=== PATIENT | female | born 1955 | race African-American/Black ===

== ENCOUNTER 2018-10-19 16:04 | Inpatient (IN) | payer BC ==
[~2018-10-19] VITALS: Ht 162.6 cm; Wt 77.6 kg
[2018-10-19] MEDS ORDERED: CEFTRIAXONE SOD 1 GM/NS 50 ML 50 ML IV STA (16:29)
[2018-10-19] MEDS ORDERED: IBUPROFEN 400 MG TAB PO STA (16:29)
[2018-10-19] MEDS ORDERED: SODIUM CHLORIDE 0.9% 1000ML 1,000 ML IV STA (16:29)
[2018-10-19] MEDS ORDERED: IBUPROFEN 600 MG TAB PO NR (16:45)
[2018-10-19] MEDS ORDERED: DIATRIZOATE MEGL/DIATRIZOA SOD 30 ML BTL PO ONE (17:21)
[2018-10-19 18:19] LABS: BASOPHILS % 0.3 % (0.0-1.0); EOSINOPHILS % 0.3 % (0.0-6.0); HEMATOCRIT 33.8 % (34.2-44.1); HEMOGLOBIN 11.3 g/dL (12.0-16.0); LYMPHOCYTES # (AUTO) 0.6 (1.0-3.2); LYMPHOCYTES % 5.3 % (18.0-39.1); MEAN CORPUSCULAR HEMOGLOBIN 28.4 pg (28-32); MEAN CORPUSCULAR HGB CONC 33.4 g/dL (31-35); MEAN CORPUSCULAR VOLUME 84.9 fL (81-99); MONOCYTES # (AUTO) 0.5 (0.2-0.8); MONOCYTES % 4.3 % (4.4-11.3); NEUTROPHILS # (AUTO) 10.2 (2.1-6.9); NEUTROPHILS % 88.3 % (38.7-80.0); PLATELET COUNT 244 x10e3/uL (140-360); RED BLOOD COUNT 3.98 x10e6/uL (3.6-5.1); RED CELL DISTRIBUTION WIDTH 15.8 % (11.7-14.4)
[2018-10-19 18:22] LABS: INR 1.23; PROTHROMBIN TIME 16.1 seconds (11.9-14.5)
[2018-10-19 18:23] LABS: PARTIAL THROMBOPLASTIN TIME 27.1 seconds (23.8-35.5)
[2018-10-19 18:30] LABS: ALBUMIN 2.2 g/dL (3.5-5.0); ALBUMIN/GLOBULIN RATIO 0.4 (0.8-2.0); ANION GAP 11.8 mmol/L (8-16); CALCIUM 8.7 mg/dL (8.4-10.2); CREATININE, SERUM 1.14 mg/dL (0.57-1.11); POTASSIUM 3.8 mmol/L (3.5-5.1)
[2018-10-19 18:42] LABS: MAGNESIUM 2.1 MG/DL (1.3-2.1)
--- NOTE | 2018-10-19 19:01 | Diagnostic Imaging Report ---
EXAMINATION: CHEST SINGLE (PORTABLE) INDICATION: ^ERMD ORDER ^[id number] ^1800 ^Y COMPARISON: None FINDINGS: AP view TUBES and LINES: None. LUNGS: Lungs are well inflated. Bilateral lower lobe consolidation, right greater than left. Bilateral central pulmonary vascular congestion. PLEURA: No pleural effusion or pneumothorax. HEART AND MEDIASTINUM: Mild enlargement of the cardiac silhouette. BONES AND SOFT TISSUES: No acute osseous lesion. Soft tissues are unremarkable. UPPER ABDOMEN: No free air under the diaphragm. IMPRESSION: Bilateral lower lobe consolidation suggestive of aspiration or pneumonia. Bilateral central pulmonary vascular congestion. Signed by: Dr. Michell Duckworth M.D. on 10/19/2018 6:58 PM
[2018-10-19] MEDS ORDERED: SODIUM CHLORIDE 0.9% 1000ML 1,000 ML IV SCH (19:15)
[2018-10-19 19:22] LABS: LYMPHOCYTES % (MANUAL) 4 % (19-48); MONOCYTES % (MANUAL) 4 % (3.4-9.0); NEUTROPHILS % (MANUAL) 92 % (40-74); PLATELET ESTIMATE ADEQUATE; PLATELET MORPHOLOGY COMMENT MODERATE GIANT; RBC MORPHOLOGY COMMENT NORMAL
[2018-10-19 19:45] LABS: BILIRUBIN,URINE SMALL (NEGATIVE); CLARITY,URINE CLOUDY (CLEAR); COLOR,URINE YELLOW (YELLOW); KETONES,URINE NEGATIVE (NEGATIVE); LEUKOCYTE ESTERASE ,URINE NEGATIVE (NEGATIVE); NITRITE,URINE NEGATIVE (NEGATIVE); URINE UROBILINOGEN 1 mg/dL (0.2 - 1)
[2018-10-19 19:49] LABS: PROTEIN,URINE DIPSTICK 2+ (NEGATIVE)
[2018-10-19 20:03] LABS: AMORPHOUS SEDIMENT,URINE MODERATE (FEW); BACTERIA,URINE MANY /HPF
--- NOTE | 2018-10-19 20:15 | Diagnostic Imaging Report ---
EXAM: CT Abdomen and Pelvis WITH contrast INDICATION: ^Right lateral abdominal pain. R/O Appendicitis, Cholecystis ^[id number] ^1500 COMPARISON: Chest radiograph 10/19/2018 TECHNIQUE: Abdomen and pelvis were scanned utilizing a multidetector helical scanner from the lung base to the pubic symphysis after administration of IV contrast. Coronal and sagittal reformations were obtained. Routine protocol was performed. Scan was performed when during portal venous phase. IV CONTRAST: 100 mL of Isovue-370 ORAL CONTRAST: Gastrografin RADIATION DOSE: Total DLP: 492.4 mGy*cm Estimated effective dose: (DLP x 0.015 x size factor) mSv COMPLICATIONS: None FINDINGS: LINES and TUBES: None. LOWER THORAX: Large consolidations in the right middle and left lower lobe with air bronchograms suggestive of aspiration, aspiration pneumonitis, or multifocal pneumonia. HEPATOBILIARY: No focal hepatic lesions. No biliary ductal dilation. GALLBLADDER: No radio-opaque stones or sludge. No wall thickening. SPLEEN: No splenomegaly. PANCREAS: No focal masses or ductal dilatation. ADRENALS: No adrenal nodules KIDNEYS/URETERS: Kidneys enhance symmetrically. No hydronephrosis. Multiple bilateral low-attenuation renal cyst, measuring up to 6.2 cm on the right and 6.4 cm on the left. No stones. GI TRACT: Mild nonspecific circumferential wall thickening of a few loops of distal small bowel in the pelvis, better seen on series 2, image 64. The appendix is not visualized but no inflammatory changes are seen in the right lower quadrant. No bowel dilatation or obstruction. PELVIC ORGANS/BLADDER: Multi fibroid uterus results in extrinsic compression of the urinary bladder. LYMPH NODES: No lymphadenopathy. VESSELS: Unremarkable. PERITONEUM / RETROPERITONEUM: No free air or fluid. BONES: Unremarkable. SOFT TISSUES: Unremarkable. IMPRESSION: 1. Large right middle and left lower lobe consolidations suggestive of aspiration, aspiration pneumonitis, or multifocal pneumonia. 2. Nonspecific wall thickening of few loops of small bowel in the pelvis may be inflammatory or infectious. 3. Otherwise, no acute abnormalities in the abdomen and pelvis. The appendix is not visualized but no inflammatory changes in the right lower quadrant. No cholecystitis. Signed by: Dr. Michell Duckworth M.D. on 10/19/2018 8:12 PM
[2018-10-19] MEDS ORDERED: ALBUTEROL/IPRATROPIUM 3 ML NEB NEB PRN (21:15)
--- OUTSIDE RECORDS SUMMARY | 2018-10-19 21:16 | XMS REPORT ---
Author [facility] Address Unknown Phone Unavailable Care Team Providers Care Parts Interpreter Name Role Phone Adán SANCHEZ Unavailable Unavailable Problems This patient has no known problems. Allergies, Adverse Reactions, Alerts This patient has no known allergies or adverse reactions. Medications This patient has no known medications. Results Test Description Test Time Test Comments Text Results Atomic Results Result Comments CT ABDOMEN/PELVIS W 2018-10-19 19:59:00 [place] [address] Patient Name: CHRISTIANA AMAYA MR #: [id number] : 1955 Age/Sex: 63/F Req #: [id number] Adm Physician: Ordered by: FREDO SANTOS FRAME BANDER Report #: [id number] Location: ER Room/Bed: Procedure: [id number] CT/CT ABDOMEN/PELVIS W Exam Date: 10/19/18 Exam Time: 1500 REPORT STATUS: Signed EXAM: CT Abdomen and Pelvis WITH contrast INDICATION: Right lateral abdominal pain. R/O Appendicitis, Cholecystis [id number] COMPARISON: Chest radiograph 10/19/2018 TECHNIQUE: Abdomen and pelvis were scanned utilizing a multidetector helical scanner from the lung base to the pubic symphysis after administration of IV contrast. Coronal and sagittal reformations were obtained. Routine protocol was performed. Scan was performed when during portal venous phase. IV CONTRAST: 100 mL of Isovue-370 ORAL CONTRAST: Gastrografin RADIATION DOSE: Total DLP: 492.4 mGy*cm Estimated effective dose: (DLP x 0.015 x size factor) mSv COMPLICATIONS: None FINDINGS: LINES and TUBES: None. LOWER THORAX: Large consolidations in the right middle and left lower lobe with air bronchograms suggestive of aspiration, aspiration pneumonitis, or multifocal pneumonia. HEPATOBILIARY: No focal hepatic lesions. No biliary ductal dilation. GALLBLADDER: No radio-opaque stones or sludge. No wall thickening. SPLEEN: No splenomegaly. PANCREAS: No focal masses or ductal dilatation. ADRENALS: No adrenal nodules KIDNEYS/URETERS: Kidneys enhance symmetrically. No hydronephrosis. Multiple bilateral low-attenuation renal cyst, measuring up to 6.2 cm on the right and 6.4 cm on the left. No stones. GI TRACT: Mild nonspecific circumferential wall thickening of a few loops of distal small bowel in the pelvis, better seen on series 2, image 64. The appendix is not visualized but no inflammatory changes are seen in the right lower quadrant. No bowel dilatation or obstruction. PELVIC ORGANS/BLADDER: Multi fibroid uterus results in extrinsic compression of the urinary bladder. LYMPH NODES: No lymphadenopathy. VESSELS: Unremarkable. PERITONEUM / RETROPERITONEUM: No free air or fluid. BONES: Unremarkable. SOFT TISSUES: Unremarkable. IMPRESSION: 1. Large right middle and left lower lobe consolidations suggestive of aspiration, aspiration pneumonitis, or multifocal pneumonia. 2. Nonspecific wall thickening of few loops of small bowel in the pelvis may be inflammatory or infectious. 3. Otherwise, no acute abnormalities in the abdomen and pelvis. The appendix is not visualized but no inflammatory changes in the right lower quadrant. No cholecystitis. Signed by: Dr. Dani Shahid M.D. on 10/19/2018 8:12 PM Dictated By: DANI SHAHID MD 11 Transcribed By: RADHA on 10/19/182011 COPY TO: FREDO SANTOS FRAME BANDER CHEST SINGLE (PORTABLE) 2018-10-19 18:57:00 [place] [address] Patient Name: CHRISTIANA AMAYA MR #: [id number] : 1955 Age/Sex: 63/F Req #: [id number] Adm Physician: Ordered by: FREDO SANTOS FRAME BANDER Report #: [id number] Location: ER Room/Bed: Procedure: [id number] DX/CHEST SINGLE (PORTABLE) Exam Date: 10/19/18 Exam Time: 1800 REPORT STATUS: Signed EXAMINATION: CHEST SINGLE (PORTABLE) INDICATION: ERMD ORDER [id number] 1800 Y COMPARISON: None FINDINGS: AP view TUBES and LINES: None. LUNGS: Lungs are well inflated. Bilateral lower lobe consolidation, right greater than left. Bilateral central pulmonary vascular congestion. PLEURA: No pleural effusion or pneumothorax. HEART AND MEDIASTINUM: Mild enlargement of the cardiac silhouette. BONES AND SOFT TISSUES: No acute osseous lesion. Soft tissues are unremarkable. UPPER ABDOMEN: No free air under the diaphragm. IMPRESSION: Bilateral lower lobe consolidation suggestive of aspiration or pneumonia. Bilateral central pulmonary vascular congestion. Signed by: Dr. Dani Shahid M.D. on 10/19/2018 6:58 PM Dictated By: DANI SHAHID MD 57 Transcribed By: RADHA on 10/19/181857 COPY TO: FREDO SANTOS FRAME BANDER
[2018-10-19] MEDS ORDERED: IOPAMIDOL 370 MG/ML 200 ML INFUS..BTL INJ ONE (22:16)
[2018-10-19] MEDS ORDERED: SODIUM CHLORIDE 0.9% 50ML 50 ML ONE (22:16)
[2018-10-19 23:20] VITALS: BP 115/71
[2018-10-19 23:25] VITALS: BP 115/71
[2018-10-19] MEDS: AZITHROMYCIN 500MG/NS 250 ML 250 ML IV SCH (23:28)
[2018-10-19] MEDS: SODIUM CHLORIDE 0.9% 1000ML 1,000 ML IV SCH (23:28)
[2018-10-20] VITALS (8 sets, daily range): BP systolic 94–137; BP diastolic 58–75
[2018-10-20] MEDS: PIPER-TAZ 3.375 GM 50 ML IV SCH ×4 (00:16→22:00)
[2018-10-20 03:24] LABS: CREATINE KINASE 341 IU/L (29-168)
[2018-10-20] MEDS: SODIUM CHLORIDE 0.9% 1000ML 1,000 ML IV SCH (05:05)
[2018-10-20 06:13] LABS: CREATINE KINASE MB 1.8 ng/mL (0-5.0)
--- NOTE | 2018-10-20 06:25 | Diagnostic Imaging Report ---
EXAMINATION: CHEST SINGLE (PORTABLE) COMPARISON: Chest x-ray 10/19/2018 INDICATION: Pneumonia ^PNEUMONIA ^Y DISCUSSION: Frontal view of the chest obtained at 0608 hours. HEART AND MEDIASTINUM: The heart is top normal in size to mildly enlarged LINES: None. LUNGS: Worsening right middle lobe and left mid and lower lung zone infiltrates. PLEURA: Small bilateral pleural effusions. No pneumothorax BONES AND SOFT TISSUES: No focal osseous lesion. The soft tissues are normal. IMPRESSION: Worsening pulmonary infiltrates. Signed by: Dr. Justa Carlson MD on 10/20/2018 6:21 AM
[2018-10-20] MEDS: AZITHROMYCIN 500MG/NS 250 ML 250 ML IV SCH (09:38)
[2018-10-20] MEDS: IPRATROPIUM BROMIDE 0.02% 2.5 ML NEB NEB SCH ×3 (11:45→23:00)
[2018-10-20] MEDS ORDERED: VANCOMYCIN 1GM/NS 250 ML 250 ML IV ONE (11:45)
[2018-10-20 13:53] LABS: BASOPHILS % 0.3 % (0.0-1.0); EOSINOPHILS % 0.1 % (0.0-6.0); HEMATOCRIT 34.7 % (34.2-44.1); HEMOGLOBIN 11.3 g/dL (12.0-16.0); LYMPHOCYTES # (AUTO) 0.5 (1.0-3.2); LYMPHOCYTES % 4.3 % (18.0-39.1); MEAN CORPUSCULAR HEMOGLOBIN 28.2 pg (28-32); MEAN CORPUSCULAR HGB CONC 32.6 g/dL (31-35); MEAN CORPUSCULAR VOLUME 86.5 fL (81-99); MONOCYTES # (AUTO) 0.5 (0.2-0.8); MONOCYTES % 4.1 % (4.4-11.3); NEUTROPHILS # (AUTO) 10.1 (2.1-6.9); NEUTROPHILS % 89.9 % (38.7-80.0); PLATELET COUNT 214 x10e3/uL (140-360); RED BLOOD COUNT 4.01 x10e6/uL (3.6-5.1); RED CELL DISTRIBUTION WIDTH 16.3 % (11.7-14.4)
[2018-10-20 14:13] LABS: ALANINE AMINOTRANSFERASE 109 IU/L (0-55); ALBUMIN/GLOBULIN RATIO 0.4 (0.8-2.0); ALKALINE PHOSPHATASE 89 IU/L (40-150); BLOOD UREA NITROGEN 18 mg/dL (7-26); BUN/CREATININE RATIO 17 (6-25); CALCIUM 8.8 mg/dL (8.4-10.2); CARBON DIOXIDE 21 mmol/L (22-29); CHLORIDE 101 mmol/L (98-107); CREATININE, SERUM 1.03 mg/dL (0.57-1.11); EST GLOMERULAR FILTRATION RATE > 60 ML/MIN (60-); GLUCOSE 128 mg/dL (74-118); SODIUM 130 mmol/L (136-145)
[2018-10-20 14:26] LABS: HIV 1&2 AB SCREEN NON-REACTIVE (NONREACTIVE)
[2018-10-20] MEDS: ACETAMINOPHEN 325 MG TAB PO PRN (15:41)
[2018-10-20] MEDS: LACTOBACILLUS ACIDOPHILUS CAPSULE PO SCH (17:00)
[2018-10-20] MEDS: ENOXAPARIN SOD INJ 40 MG/0.4 ML SYR SC SCH (17:00)
[2018-10-20 18:36] LABS: ABG HCO3 22 mmol/L (23-28); ABG PCO2 25 mmHg (41-51); ABG PH 7.55 (7.31-7.41); ABG PO2 127 mmHg (80-105)
[2018-10-20] MEDS ORDERED: SODIUM CHLORIDE 0.9% 250ML 250 ML ONE (23:06)
[2018-10-21] VITALS (9 sets, daily range): BP systolic 114–166; BP diastolic 77–89
[2018-10-21] MEDS ORDERED: VANCOMYCIN 1GM/NS 250 ML 250 ML IV ONE (00:05)
[2018-10-21] MEDS: ACETAMINOPHEN 325 MG TAB PO PRN ×2 (01:00→16:12)
[2018-10-21] MEDS: IPRATROPIUM BROMIDE 0.02% 2.5 ML NEB NEB SCH ×12 (01:30→23:00)
--- NOTE | 2018-10-21 03:37 | Consultation ---
DATE OF CONSULTATION: 10/20/2018 Pulmonary Medicine Consult REFERRING PHYSICIAN: Dr. Butler. CHIEF COMPLAINT: Pneumonia. HISTORY OF PRESENT ILLNESS: Ms. Hilton is a pleasant 63-year-old female with pneumonia. The patient was in usual state of health until just prior to her being admitted. She was admitted to the hospital on October 19, 2018. The patient had 3 days of pain. Pain to the abdomen as well as sliding to lower chest. Moderate amount of pain, but there was a pattern of progression. She came to the emergency room. The patient had abdominal CT showing bilateral dense consolidations. The patient furthermore with febrile syndrome up to 103.9, so far temperature. Intermittent tachycardia to 138. I am consulted. The chest x-ray showing slight blossoming of the pulmonary infiltrates. Furthermore, the abdominal pelvic CT shows a nonspecific wall thickening of a few loops of small bowel as well as a large fibroid appearing uterus. There was extrinsic compression of the urinary bladder. PAST MEDICAL HISTORY: None remarkable. The patient never had pneumonia in the past. MEDICATIONS: Medication list reviewed per the chart record. Include Zosyn, azithromycin, and enoxaparin. ALLERGIES: NO KNOWN DRUG ALLERGIES. SOCIAL HISTORY: The patient smoked for only one year in her life. Mostly nonsmoker. No alcohol. No drugs. The patient worked in [employer]. She is from [place], [place], where she was born and she lived up to the age of 10. From age 10 to age 53, she lived in [place], [place]. The patient moved between dialysis now in [place] for the last 10 years. She will also live in city environments. No pets. She lives with her and her son, who has traumatic brain injury at 31, although he is functioning mostly well. FAMILY HISTORY: Noncontributory to this. REVIEW OF SYSTEMS: Cannot get reliably as patient is very sleepy/lethargic. OBJECTIVE: The patient is somewhat unstable with tachycardia and fevers as stated. GENERAL: Looks pale, not definitely toxic-appearing, but definitely sleepy more than expected. HEENT: Normocephalic and atraumatic. NECK: Supple. Throat midline. LUNGS: Bilateral air entry, limited evaluation, but few rhonchi. CARDIOVASCULAR: S1, S2. No murmurs, rubs, or gallops. ABDOMEN: Soft and nontender. EXTREMITIES: No clubbing, no cyanosis, no edema. INTEGUMENT: No rash or purpura. LABORATORY DATA: 12 white count, 34 hematocrit, 244 platelets. 89% differential neutrophils. 7.55/25/127/22 bicarbonate. 130 sodium, 4.0 potassium, 18 BUN, 1.0 creatinine, 128 glucose. 131 AST, ALT 109, creatine kinase 226, albumin is 2.0, total protein 7.5, globulin 5.5, hCG negative, amylase and lipase normal. HIV already came back is negative today. Urinalysis with 6-10 red cells. IMPRESSION AND PLAN: 1. Severe community-acquired pneumonia. 2. Encephalopathy. 3. Severe sepsis. 4. Tachycardia, significant. 5. Significant fibroid appearing uterus. 6. Hyponatremia. 7. Mild hepatitis/rhabdomyolysis/liver failure involving. Continue high-dose antibiotics. We will re-dose another vancomycin dose for the very very meat pumper. The patient can continue on IV fluid initially with tachycardia. Recheck EKG noting that original EKG had sinus tachycardia at 129 beats per minute. Continue to follow serial neurologic status. Check lactic acid. The patient in very critical condition and estimated to have a significant mortality associated with this condition. Recheck LFTs tomorrow. In the long run, we need to ensure albumin and globulins come to normal. Due to significant appearance of fibroid type uterus, at some point we want to check a contrast CT of the lungs to make sure there is no masses, but if the patient improves, we will get better image if we wait. The patient in critical condition. The patient will go to [facility] today. Follow up closely. Thank you very much, Dr. Butler for allowing me a chance to participate in the care of Ms. Hilton. Do not hesitate to call me if I can help in anyway. MD SANTIAGO Wyman/LUIS CARLOS /[id number]
[2018-10-21 05:06] LABS: BASOPHILS % 0.2 % (0.0-1.0); EOSINOPHILS % 0.2 % (0.0-6.0); HEMATOCRIT 30.2 % (34.2-44.1); HEMOGLOBIN 9.7 g/dL (12.0-16.0); LYMPHOCYTES # (AUTO) 0.6 (1.0-3.2); LYMPHOCYTES % 6.9 % (18.0-39.1); MEAN CORPUSCULAR HGB CONC 32.1 g/dL (31-35); MONOCYTES # (AUTO) 0.5 (0.2-0.8); NEUTROPHILS # (AUTO) 7.7 (2.1-6.9); NEUTROPHILS % 85.2 % (38.7-80.0); PLATELET COUNT 233 x10e3/uL (140-360); RED BLOOD COUNT 3.47 x10e6/uL (3.6-5.1); RED CELL DISTRIBUTION WIDTH 16.2 % (11.7-14.4)
[2018-10-21 05:36] LABS: ANION GAP 10.6 mmol/L (8-16); BLOOD UREA NITROGEN 16 mg/dL (7-26); BUN/CREATININE RATIO 18 (6-25); CALCIUM 8.4 mg/dL (8.4-10.2); CARBON DIOXIDE 23 mmol/L (22-29); CHLORIDE 106 mmol/L (98-107); CREATININE, SERUM 0.89 mg/dL (0.57-1.11); EST GLOMERULAR FILTRATION RATE > 60 ML/MIN (60-); GLUCOSE 96 mg/dL (74-118); POTASSIUM 3.6 mmol/L (3.5-5.1); SODIUM 136 mmol/L (136-145)
[2018-10-21 05:40] LABS: INR 1.23; PROTHROMBIN TIME 16.1 seconds (11.9-14.5)
[2018-10-21 05:51] LABS: CREATINE KINASE 118 IU/L (29-168); LACTATE DEHYDROGENASE 228 IU/L (125-220)
[2018-10-21] MEDS: PIPER-TAZ 3.375 GM 50 ML IV SCH ×3 (06:00→22:04)
[2018-10-21 06:32] LABS: ALBUMIN 1.6 g/dL (3.5-5.0); BILIRUBIN,DIRECT 0.7 mg/dL (0.0-0.5)
--- NOTE | 2018-10-21 07:16 | Diagnostic Imaging Report ---
Examination: Single AP view of the chest. COMPARISON: CT abdomen and pelvis 10/19/2018, chest radiograph 10/20/2018 INDICATION: Pneumonia DISCUSSION: No significant interval change in dense consolidations involving the right middle and left lower lobes. No new consolidations. Stable cardiomediastinal contour. No acute osseous abnormality. IMPRESSION: Right middle lobe and left lower lobe pneumonia not significantly changed relative to 10/20/2018. Follow-up chest radiographs in 8 weeks after appropriate treatment are suggested to document resolution. Signed by: Dr. Lawrence Argueta M.D. on 10/21/2018 7:13 AM
[2018-10-21] MEDS: LACTOBACILLUS ACIDOPHILUS CAPSULE PO SCH ×2 (08:26→16:12)
[2018-10-21] MEDS: AZITHROMYCIN 500MG/NS 250 ML 250 ML IV SCH (08:26)
[2018-10-21] MEDS: ALBUTEROL SULF 0.083% NEB SOLN 3 ML NEB NEB PRN (11:30)
[2018-10-21] MEDS: VANCOMYCIN 1GM/NS 250 ML 250 ML IV SCH ×2 (13:00→23:57)
[2018-10-21] MEDS: ENOXAPARIN SOD INJ 40 MG/0.4 ML SYR SC SCH (16:12)
[2018-10-21] MEDS ORDERED: SODIUM CHLORIDE 0.9% 250ML 250 ML ONE (16:51)
[2018-10-22] VITALS (9 sets, daily range): BP systolic 134–163; BP diastolic 70–96
[2018-10-22] MEDS: ACETAMINOPHEN 325 MG TAB PO PRN (00:06)
[2018-10-22] MEDS: IPRATROPIUM BROMIDE 0.02% 2.5 ML NEB NEB SCH ×8 (03:00→23:40)
[2018-10-22] MEDS: ALBUTEROL SULF 0.083% NEB SOLN 3 ML NEB NEB PRN ×3 (04:00→23:40)
[2018-10-22] MEDS: PIPER-TAZ 3.375 GM 50 ML IV SCH ×3 (05:23→21:49)
--- NOTE | 2018-10-22 06:53 | Diagnostic Imaging Report ---
EXAMINATION: CHEST SINGLE (PORTABLE) COMPARISON: Chest x-ray 10/21/2018 INDICATION: Pneumonia ^pneumonia DISCUSSION: Frontal view of the chest obtained at 0559 hours. HEART AND MEDIASTINUM: Cardiomediastinal silhouette is stable. LINES: None. LUNGS: Bilateral perihilar infiltrates are stable. No new findings. PLEURA: No large effusions. No pneumothorax. BONES AND SOFT TISSUES: No focal osseous lesion. The soft tissues are normal. IMPRESSION: No change in bilateral pulmonary infiltrates. No new cardiopulmonary findings. Signed by: Dr. Justa Carlson MD on 10/22/2018 6:50 AM
[2018-10-22] MEDS: LACTOBACILLUS ACIDOPHILUS CAPSULE PO SCH ×2 (08:12→16:42)
[2018-10-22] MEDS: AZITHROMYCIN 500MG/NS 250 ML 250 ML IV SCH (08:13)
[2018-10-22] MEDS: VANCOMYCIN 1GM/NS 250 ML 250 ML IV SCH (11:04)
[2018-10-22] MEDS: ENOXAPARIN SOD INJ 40 MG/0.4 ML SYR SC SCH (16:42)
[2018-10-22 16:50] LABS: AMPHETAMINES SCREEN,URINE NEGATIVE (NEGATIVE); BENZODIAZEPINES SCREEN,URINE NEGATIVE (NEGATIVE); PHENCYCLIDINE SCREEN,URINE NEGATIVE (NEGATIVE)
[2018-10-23] MEDS: VANCOMYCIN 1GM/NS 250 ML 250 ML IV SCH (00:28)
[2018-10-23] MEDS: PIPER-TAZ 3.375 GM 50 ML IV SCH ×3 (02:02→22:30)
[2018-10-23] MEDS: ALBUTEROL SULF 0.083% NEB SOLN 3 ML NEB NEB PRN ×2 (03:40→20:40)
[2018-10-23] MEDS: IPRATROPIUM BROMIDE 0.02% 2.5 ML NEB NEB SCH ×6 (03:40→23:30)
[2018-10-23 04:35] VITALS: BP 157/84
[2018-10-23 04:43] LABS: BASOPHILS # (AUTO) 0.1 (0.0-0.1); BASOPHILS % 0.5 % (0.0-1.0); EOSINOPHILS # (AUTO) 0.1 (0.0-0.4); EOSINOPHILS % 0.7 % (0.0-6.0); HEMATOCRIT 31.1 % (34.2-44.1); LYMPHOCYTES # (AUTO) 0.7 (1.0-3.2); LYMPHOCYTES % 6.9 % (18.0-39.1); MEAN CORPUSCULAR HEMOGLOBIN 28.2 pg (28-32); MEAN CORPUSCULAR HGB CONC 32.2 g/dL (31-35); MEAN CORPUSCULAR VOLUME 87.6 fL (81-99); MONOCYTES # (AUTO) 0.7 (0.2-0.8); MONOCYTES % 6.3 % (4.4-11.3); NEUTROPHILS # (AUTO) 8.3 (2.1-6.9); NEUTROPHILS % 79.5 % (38.7-80.0); PLATELET COUNT 344 x10e3/uL (140-360); RED BLOOD COUNT 3.55 x10e6/uL (3.6-5.1); RED CELL DISTRIBUTION WIDTH 16.1 % (11.7-14.4)
[2018-10-23] MEDS: ACETAMINOPHEN 325 MG TAB PO PRN ×2 (04:44→19:21)
[2018-10-23 05:06] LABS: ALANINE AMINOTRANSFERASE 59 IU/L (0-55); ALBUMIN 1.6 g/dL (3.5-5.0); ALBUMIN/GLOBULIN RATIO 0.3 (0.8-2.0); ALKALINE PHOSPHATASE 64 IU/L (40-150); ANION GAP 11.1 mmol/L (8-16); BLOOD UREA NITROGEN 9 mg/dL (7-26); BUN/CREATININE RATIO 12 (6-25); CALCIUM 8.5 mg/dL (8.4-10.2); CARBON DIOXIDE 23 mmol/L (22-29); CHLORIDE 105 mmol/L (98-107); CREATININE, SERUM 0.78 mg/dL (0.57-1.11); EST GLOMERULAR FILTRATION RATE > 60 ML/MIN (60-); GLUCOSE 113 mg/dL (74-118); MAGNESIUM 1.4 MG/DL (1.3-2.1); POTASSIUM 3.1 mmol/L (3.5-5.1); SODIUM 136 mmol/L (136-145)
[2018-10-23] MEDS ORDERED: POTASSIUM CHLORIDE 20 MEQ TAB CR PO STA (06:33)
[2018-10-23 07:04] LABS: EOSINOPHILS % (MANUAL) 1 % (0-7); LYMPHOCYTES % (MANUAL) 4 % (19-48); MONOCYTES % (MANUAL) 4 % (3.4-9.0); NEUTROPHILS % (MANUAL) 87 % (40-74); PROMYELOCYTES % (MANUAL) 4 % (0-0)
[2018-10-23 07:25] VITALS: BP 117/72
[2018-10-23] MEDS: AZITHROMYCIN 500MG/NS 250 ML 250 ML IV SCH (08:00)
[2018-10-23] MEDS: LACTOBACILLUS ACIDOPHILUS CAPSULE PO SCH ×2 (08:00→16:47)
[2018-10-23 11:45] VITALS: BP 133/90
[2018-10-23] MEDS ORDERED: THIAMINE HCL 100 MG TAB PO NR (15:30)
[2018-10-23] MEDS: ENOXAPARIN SOD INJ 40 MG/0.4 ML SYR SC SCH (16:47)
[2018-10-23 17:13] VITALS: BP 143/80
[2018-10-23 19:30] VITALS: BP 152/92
[2018-10-23 21:00] VITALS: BP 152/92
[2018-10-24] VITALS (8 sets, daily range): BP systolic 121–159; BP diastolic 54–94
[2018-10-24] MEDS: IPRATROPIUM BROMIDE 0.02% 2.5 ML NEB NEB SCH ×5 (03:15→19:30)
[2018-10-24] MEDS: PIPER-TAZ 3.375 GM 50 ML IV SCH ×3 (05:59→21:31)
[2018-10-24] MEDS ORDERED: IOPAMIDOL 370 MG/ML 200 ML INFUS..BTL INJ ONE (07:15)
--- NOTE | 2018-10-24 07:33 | Diagnostic Imaging Report ---
History: AMS, abnormal uterine mass Comparison studies: None Technique: Axial images were obtained from the skull base to the vertex. Coronal and sagittal reconstructions obtained from the axial data. Intravenous contrast: 100 cc of Omnipaque 300. Dose modulation, iterative reconstruction, and/or weight based adjustment of the mA/kV was utilized to reduce the radiation dose to as low as reasonably achievable. Findings: Scalp/skull: No abnormalities. No fractures, blastic or lytic lesions. Extra-axial spaces: No masses. No fluid collections. Brain sulci: Appropriate for age. Ventricles: Normal in size and configuration. No hydrocephalus. Parenchyma: No abnormal densities. No enhancing abnormalities. No masses, hemorrhage, acute or chronic cortical vascular insults. Sellar/suprasellar region: No abnormalities Craniocervical junction: Patent foramen magnum. No Chiari one malformation. Incidental findings: None IMPRESSION: Normal examination Signed by: DR Siva Hernandez M.D. on 10/24/2018 7:29 AM
--- NOTE | 2018-10-24 07:46 | Diagnostic Imaging Report ---
ADDENDUM #1 ADDENDUM: Possible subcentimeter bilateral thyroid nodules. Thyroid ultrasound may be considered for further evaluation. Signed by: Dr. Berny Koch MD on 10/24/2018 12:30 PM ORIGINAL REPORT EXAM: CT Chest WITH contrast INDICATION: Pneumonia, history of uterine mass COMPARISON: Chest radiograph 10/22/2018. CT Abdomen/Pelvis 10/19/2018. TECHNIQUE: Chest was scanned utilizing a multidetector helical scanner from the lung apex through the level of the adrenal glands without administration of IV contrast. Coronal and sagittal reformations were obtained. Routine protocol was performed. IV CONTRAST: 100 mL of Isovue 370 RADIATION DOSE: Total DLP: 2295.7 mGy*cm Dose modulation, iterative reconstruction, and/or weight based adjustment of the mA/kV was utilized to reduce the radiation dose to as low as reasonably achievable. COMPLICATIONS: None FINDINGS: LINES/ TUBES: None. LUNGS AND AIRWAYS: The central airways are patent. Diffuse opacity limits evaluation for focal abnormalities. There are multifocal patchy and confluent consolidative opacities including in the dependent right upper lobe, right middle lobe, left greater than right lower lobes, and dependent left upper lobe. There are scattered nodular opacities, for example a consolidative opacity in the right lower lobe, measuring 0.8 cm on series 6, image 68 and 7 mm nodular opacity in the right upper lobe on image 39. Mild biapical pleural-parenchymal opacity, suggestive of prior granulomatous disease. PLEURA: Small layering left pleural effusion, most pronounced at the apex. Small layering right basilar pleural effusion. HEART AND MEDIASTINUM: Possible left thyroid nodule, measuring up to 0.9 cm and right thyroid nodule measuring 0.9 cm. No mediastinal, hilar or axillary lymphadenopathy. Mild cardiomegaly. No pericardial effusion. The main pulmonary artery is mildly enlarged, measuring up to 3.1 cm, suggestive of pulmonary arterial hypertension. UPPER ABDOMEN: Limited contrast-enhanced views of the upper abdomen. Simple appearing 3.1 cm right upper pole renal cyst. BONES: No acute osseous abnormality. No suspicious lytic or blastic lesions. Scattered mild degenerative changes. SOFT TISSUES: Unremarkable. IMPRESSION: Multifocal consolidative opacities, consistent with clinical history of pneumonia. Diffuse opacity limits evaluation for underlying pulmonary nodule. Scattered nodular opacities as above are likely infectious or inflammatory. Recommend follow-up chest CT in 3 months to assess for resolution. Signed by: Dr. Berny Koch MD on 10/24/2018 7:42 AM
[2018-10-24] MEDS: AZITHROMYCIN 500MG/NS 250 ML 250 ML IV SCH (09:59)
[2018-10-24] MEDS: LACTOBACILLUS ACIDOPHILUS CAPSULE PO SCH ×2 (10:00→16:50)
[2018-10-24] MEDS: MULTIVITAMINS/MINERALS TAB PO SCH (10:00)
[2018-10-24] MEDS: ACETAMINOPHEN 325 MG TAB PO PRN ×3 (10:50→22:03)
[2018-10-24] MEDS: ENOXAPARIN SOD INJ 40 MG/0.4 ML SYR SC SCH (16:50)
[2018-10-24] MEDS: ALBUTEROL SULF 0.083% NEB SOLN 3 ML NEB NEB PRN (19:30)
[2018-10-24] MEDS ORDERED: THIAMINE HCL 100 MG TAB PO ONE (21:45)
[2018-10-25] VITALS (9 sets, daily range): BP systolic 126–169; BP diastolic 57–96
[2018-10-25] MEDS: ALBUTEROL SULF 0.083% NEB SOLN 3 ML NEB NEB PRN
[2018-10-25] MEDS: IPRATROPIUM BROMIDE 0.02% 2.5 ML NEB NEB SCH ×7 (03:00→23:30)
[2018-10-25] MEDS: PIPER-TAZ 3.375 GM 50 ML IV SCH ×3 (05:20→21:40)
[2018-10-25 05:22] LABS: BASOPHILS # (AUTO) 0.1 (0.0-0.1); BASOPHILS % 0.6 % (0.0-1.0); EOSINOPHILS # (AUTO) 0.1 (0.0-0.4); HEMATOCRIT 29.6 % (34.2-44.1); HEMOGLOBIN 9.4 g/dL (12.0-16.0); LYMPHOCYTES # (AUTO) 0.7 (1.0-3.2); LYMPHOCYTES % 6.1 % (18.0-39.1); MEAN CORPUSCULAR HEMOGLOBIN 28.3 pg (28-32); MEAN CORPUSCULAR HGB CONC 31.8 g/dL (31-35); MEAN CORPUSCULAR VOLUME 89.2 fL (81-99); MONOCYTES # (AUTO) 0.7 (0.2-0.8); NEUTROPHILS % 78.1 % (38.7-80.0); PLATELET COUNT 444 x10e3/uL (140-360); RED BLOOD COUNT 3.32 x10e6/uL (3.6-5.1); RED CELL DISTRIBUTION WIDTH 16.3 % (11.7-14.4)
[2018-10-25 05:46] LABS: ALANINE AMINOTRANSFERASE 61 IU/L (0-55); ALBUMIN 1.7 g/dL (3.5-5.0); ALBUMIN/GLOBULIN RATIO 0.4 (0.8-2.0); ALKALINE PHOSPHATASE 61 IU/L (40-150); ANION GAP 8.3 mmol/L (8-16); BLOOD UREA NITROGEN 7 mg/dL (7-26); BUN/CREATININE RATIO 9 (6-25); CALCIUM 8.7 mg/dL (8.4-10.2); CARBON DIOXIDE 29 mmol/L (22-29); CHLORIDE 107 mmol/L (98-107); CREATININE, SERUM 0.76 mg/dL (0.57-1.11); EST GLOMERULAR FILTRATION RATE > 60 ML/MIN (60-); GLUCOSE 95 mg/dL (74-118); MAGNESIUM 1.6 MG/DL (1.3-2.1); PHOSPHORUS 3.3 MG/DL (2.3-4.7); POTASSIUM 3.3 mmol/L (3.5-5.1); SODIUM 141 mmol/L (136-145)
[2018-10-25 07:37] LABS: ANISOCYTOSIS SLIGHT; BLAST CELLS % MANUAL 1; EOSINOPHILS % (MANUAL) 3 % (0-7); HYPOCHROMASIA SLIGHT; LYMPHOCYTES % (MANUAL) 8 % (19-48); METAMYELOCYTES % (MANUAL) 2 % (0-0); MONOCYTES % (MANUAL) 3 % (3.4-9.0); MYELOCYTES % (MANUAL) 2 % (0-0); NEUTROPHILS % (MANUAL) 80 % (40-74); PLATELET ESTIMATE ADEQUATE; PLATELET MORPHOLOGY COMMENT NORMAL; RBC MORPHOLOGY COMMENT NORMAL
[2018-10-25] MEDS ORDERED: AZITHROMYCIN 500MG/NS 250 ML 250 ML IV SCH (09:00)
[2018-10-25] MEDS: MULTIVITAMINS/MINERALS TAB PO SCH (10:28)
[2018-10-25] MEDS: AZITHROMYCIN 500MG/NS 250 ML 250 ML IV SCH (10:28)
[2018-10-25] MEDS: LACTOBACILLUS ACIDOPHILUS CAPSULE PO SCH ×2 (10:28→17:57)
[2018-10-25] MEDS: ACETAMINOPHEN 325 MG TAB PO PRN ×2 (10:29→21:40)
[2018-10-25] MEDS ORDERED: XARELTO10 MG PO (11:54)
[2018-10-25] MEDS ORDERED: AUGMENTIN 875-1 EACH PO (11:54)
[2018-10-25] MEDS ORDERED: PROAIR HFA INH8.5 GM INH (11:56)
[2018-10-25] MEDS ORDERED: POTASSIUM CHLORIDE 20 MEQ TAB CR PO STA (12:40)
[2018-10-25] MEDS ORDERED: MAGNESIUM SULFATE 2GM/50ML 50 ML IV ONE (12:45)
[2018-10-25] MEDS: DILTIAZEM HCL ER 120 MG CAP PO SCH (13:45)
[2018-10-25] MEDS: ENOXAPARIN SOD INJ 40 MG/0.4 ML SYR SC SCH (17:57)
[2018-10-26 00:12] VITALS: BP 144/74
[2018-10-26] MEDS: IPRATROPIUM BROMIDE 0.02% 2.5 ML NEB NEB SCH ×3 (03:15→11:00)
[2018-10-26 04:51] VITALS: BP 134/77
[2018-10-26] MEDS: PIPER-TAZ 3.375 GM 50 ML IV SCH ×2 (05:36→13:15)
[2018-10-26 07:45] VITALS: BP 159/94
[2018-10-26] MEDS: LACTOBACILLUS ACIDOPHILUS CAPSULE PO SCH (08:45)
[2018-10-26] MEDS: DILTIAZEM HCL ER 120 MG CAP PO SCH (08:45)
[2018-10-26] MEDS: AZITHROMYCIN 500MG/NS 250 ML 250 ML IV SCH (08:45)
[2018-10-26] MEDS: MULTIVITAMINS/MINERALS TAB PO SCH (08:45)
[2018-10-26] MEDS ORDERED: DILTIAZEM HCL ER 120 MG CAP PO NR (11:00)
--- NOTE | 2018-10-26 11:43 | Discharge Summary ---
PRIMARY CARE DOCTOR: [facility] in [place]. FINAL DIAGNOSIS: Severe sepsis present on admission due to bilateral pneumonia. SECONDARY DIAGNOSES: 1. Acute kidney injury, resolved. 2. Hyponatremia, resolved. 3. Hypertension. 4. Metabolic encephalopathy present on admission, resolved. CONSULTANTS: Dr. Esquivel, Pulmonary. PROCEDURES/STUDIES PERFORMED: 1. CT of the chest, abdomen, pelvis. 2. Head CT. HISTORY: Per H and P. HOSPITAL COURSE: The patient was admitted. The patient was put on broad-spectrum antibiotics including Zosyn, azithromycin, and IV vancomycin. Finally, slowly she got better, her metabolic encephalopathy resolved, her tachycardia is slowly resolving; however, at this time, the patient is still hypoxic, therefore she will go home on home oxygen. Cardizem was started for both her likely newly diagnosed hypertension and her tachycardia. Her creatinine normalized. The patient will go home today with home physical therapy and home oxygen. The patient will be on Augmentin for eight more days to complete a course. Here, the patient received Lovenox for DVT prophylaxis. The patient will go home on Xarelto for two weeks for DVT prophylaxis given how severe the infection was. The patient will follow up with her PCP in a week. CONDITION ON DISCHARGE: Improved. DISCHARGE MEDICATIONS: Please see medication reconciliation form. The patient was seen and examined today. It took 33 minutes total to discharge this patient. MD LEANNE Bonilla/LUIS CARLOS /[id number] cc: [facility]
[2018-10-26 13:00] VITALS: BP 133/81
[2018-10-27] MEDS ORDERED: DILTIAZEM HCL ER 120 MG CAP PO SCH (09:00)
== END 2018-10-26 14:56 | disposition home health service (06) | DRG 871 ==
LOC: ER 16:04 → ERHOLD 21:13 → MED/SURG2 22:26 → IMCU 10-20 21:31
PROVIDERS: ADMIT Internal Medicine; ATTEND Internal Medicine
PROC: 05HP33Z Insertion of Infusion Device into Right External Jugular Vein, Percutaneous Approach (ICD-10-PCS; principal; 2018-10-19)
DX: A41.9 Sepsis, unspecified organism (principal); J18.9 Pneumonia, unspecified organism; G93.41 Metabolic encephalopathy; N17.9 Acute kidney failure, unspecified; E87.1 Hypo-osmolality and hyponatremia; M62.82 Rhabdomyolysis; R65.20 Severe sepsis without septic shock; I10 Essential (primary) hypertension; R00.0 Tachycardia, unspecified; R09.02 Hypoxemia; D25.9 Leiomyoma of uterus, unspecified; K75.9 Inflammatory liver disease, unspecified; K72.90 Hepatic failure, unspecified without coma; Z99.81 Dependence on supplemental oxygen; Z87.891 Personal history of nicotine dependence; Z79.01 Long term (current) use of anticoagulants
CPT/HCPCS: 36415; 70470; 71045; 71260; 74177; 80048; 80053; 80076; 80202; 80307; 81001; 82150; 82550; 82553; 82805; 82948; 83605; 83615; 83690; 83735; 83880; 84100; 84484; 84702; 85025; 85610; 85730; 87040; 87070; 87081; 87086; 87205; 87390; 93005; 94640; 96367; 99284; G0433; G0435; J0456; J0696; J1650; J2543; J3370; J3411; J3475; J7030; J7050; Q9967